=== PATIENT | male | born 1990 | race Caucasian/White ===

== ENCOUNTER → 2017-03-08 | Day surgery (SDC) | payer OTHER ==
[~2017-03-08] MED LIST: IBUPROFEN PO; NO MEDICATIONS; NORCO 7.5-3251 EACH PO; PRILOSEC PO; ZANTAC150 M1 PO; ZOFRAN ODT4 MG SL
--- NOTE | ~2017-03-08 | OR ---
Unit #: [id number] #: [id number] Patient: CORTES PARHAM [id number] [address] [address] [id number] O MR#: [id number] NAME: CORTES PARHAM. ROOM: Date of Procedure: 03/08/2017 Admission Date: 03/08/2017 Surgeon: Donal Tobar M.D. : 1990 Attending Physician: Donal Tobar M.D. Primary Care Physician: Anton Lucas Jr., A.P.R.N. OPERATIVE REPORT PROCEDURE PERFORMED Esophagogastroduodenoscopy with biopsy. INDICATIONS FOR PROCEDURE Persistent epigastric pain, nausea, and vomiting. MEDICATIONS Monitored anesthesia. POSTOPERATIVE FINDINGS 1. LA grade A esophagitis along with small hiatal hernia. 2. Chronic appearing gastritis. Biopsies taken. 3. Normal duodenum and distal duodenum. PLAN PPI therapy. Follow up on the pathology report. DESCRIPTION OF PROCEDURE The patient was explained of the procedure, risks, and benefits along with the risks and benefits of anesthesia. He was brought to the endoscopy room. Propofol anesthesia was given. Bite block was placed. The scope was passed down the mouth and esophagus, stomach, duodenum, and distal duodenum. Findings as described. Biopsies taken. Gently, I pulled the scope out of the patient's mouth. He tolerated it well. Dictated by... Brittany Carver/joe TD: 03/09/2017 02:37 JOB #: [id number] Unit #: [id number] #: [id number] Patient: CORTES PARHAM OPERATIVE REPORT Page 1 of 1 X Donal Tobar MD X PROCEDURE OPERATIVE NOTE
== END | disposition home or self-care (01) ==
LOC: COPS 07:12
DX: K29.50 Unspecified chronic gastritis without bleeding (principal); K44.9 Diaphragmatic hernia without obstruction or gangrene; K20.9 Esophagitis, unspecified; F17.210 Nicotine dependence, cigarettes, uncomplicated; Z79.891 Long term (current) use of opiate analgesic; Z79.1 Long term (current) use of non-steroidal anti-inflammatories (NSAID); Z98.818 Other dental procedure status
CPT/HCPCS: 88305; 88312; J2250

== ENCOUNTER 2017-04-06 13:06 | Emergency (ER) | payer OTHER | END 2017-04-06 14:01 | disposition home or self-care (01) | LOC: SED 13:06 | DX: L05.91 Pilonidal cyst without abscess (principal); F17.200 Nicotine dependence, unspecified, uncomplicated; Z98.890 Other specified postprocedural states | CPT/HCPCS: 99282 ==